=== PATIENT | female | born 1955 ===

== ENCOUNTER 2017-06-16 07:58 | Day surgery (SDC) | payer OTHER ==
[~2017-06-16 07:58] MED LIST: Acetaminophen TAB* 325 MG PO PRN; Buffered Lidocaine 0.9% SYRIN* 5 ML/SYR SYRINGE INTRADERM ONE
[2017-06-16] MEDS ORDERED: fentaNYL* 50 MCG/ML 2 ML VIAL (100 MCG VIAL) ONE (10:04)
[2017-06-16] MEDS ORDERED: Midazolam* 1 MG/ML 2 ML VIAL (2 MG) ONE (10:04)
[2017-06-16] MEDS ORDERED: Cyclopentolate 1% OPTH.SOL* 2 ML BTL ONE (11:04)
[2017-06-16] MEDS ORDERED: Ketorolac 0.5% OPHTH (NF) 0.5 % 5 ML BTL ONE (11:04)
[2017-06-16] MEDS ORDERED: Povidone Iodine 5% OPTH* 30 ML BTL ONE (11:04)
[2017-06-16] MEDS ORDERED: acetaZOLAMIDE TAB* 250 MG ONE (11:04)
[2017-06-16] MEDS ORDERED: Lidocaine 1% MPF* 2 ML VIAL ONE (11:04)
[2017-06-16] MEDS ORDERED: Neomycin/Polymy/Dex OPTH.SUSP* MAXITROL 0.1% 5 ML ONE (11:04)
[2017-06-16] MEDS ORDERED: Phenylephrine 2.5% OPTH.SOL* 2 ML BTL ONE (11:04)
[2017-06-16] MEDS ORDERED: Proparacaine 0.5% OPHTH.SOL* 15 ML BTL ONE (11:04)
[2017-06-16] MEDS ORDERED: Lidocaine 2% EPI 1:200000 MPF* 20 ML VIAL ONE (11:04)
[2017-06-16 11:12] VITALS: BP 162/84
--- NOTE | 2017-06-16 12:00 | OP ---
DATE OF OPERATION: 06/16/2017 - [facility] DATE OF : 1955. SURGEON: Jese Juan M.D. PREOPERATIVE DIAGNOSIS: Cataract right eye. POSTOPERATIVE DIAGNOSIS: Cataract right eye. OPERATIVE PROCEDURE: Extracapsular cataract extraction with intraocular lens implant and CTR right eye. DESCRIPTION OF PROCEDURE: The patient was brought to the operating room after being given 1/2% Alcaine with epinephrine drops in the preoperative area. The eye was prepped and draped in the usual sterile fashion. Sterile drape and eyelid speculum were placed. Again, topical 1/2% Alcaine with epinephrine was given. A paracentesis incision was made at the 9 o'clock position with the No.75 blade. Clear cornea incision 2.2 x 2.2-mm was created at the 12 o'clock position starting at the anterior limbus using the 2.2-mm keratome. The anterior chamber was irrigated with 0.4 mL of 1% non-preservative intracameral lidocaine and filled with DisCoVisc. A capsulorrhexis was completed using the cystotome and the Utrata forceps. Hydrodissection was performed with balanced salt solution. The lens nucleus was removed with the Phacoemulsification handpiece without incident. Cortex was removed with the irrigation-aspiration handpiece. The capsular bag was re-inflated using DisCoVisc and an [id number] implant was inserted with the shooter, followed by a capsular tension ring [id number] inserted with its shooter into the capsular bag. The irrigation- aspiration handpiece was used to remove all residual DisCoVisc. The eye was refilled with balanced salt solution and the wound checked and found to be watertight. Topical Maxitrol drops were given. Indication for complex cataract surgery: Status post vitrectomy requiring a capsular tension ring device. [id number]/[facility] #: [id number] DANII
== END 2017-06-16 10:53 | disposition home or self-care (01) ==
LOC: OREAST 07:58
PROVIDERS: ATTEND Specialist
DX: H25.811 Combined forms of age-related cataract, right eye (principal); E11.3513 Type 2 diabetes mellitus with proliferative diabetic retinopathy with macular edema, bilateral; H43.12 Vitreous hemorrhage, left eye; Z79.84 Long term (current) use of oral hypoglycemic drugs; Z79.4 Long term (current) use of insulin; Z87.891 Personal history of nicotine dependence; I10 Essential (primary) hypertension; M81.0 Age-related osteoporosis without current pathological fracture; E66.01 Morbid (severe) obesity due to excess calories; R01.1 Cardiac murmur, unspecified; G47.33 Obstructive sleep apnea (adult) (pediatric); E78.2 Mixed hyperlipidemia
CPT/HCPCS: A9270-GY; J2250; J3010; V2632

== ENCOUNTER 2017-06-23 06:43 | Day surgery (SDC) | payer OTHER ==
[2017-06-23] MEDS ORDERED: Trypan Blue 0.06% SOL* 0.5 ML BTL ONE (07:01)
[2017-06-23] MEDS ORDERED: Lidocaine 1% MPF* 2 ML VIAL ONE (07:13)
[2017-06-23] MEDS ORDERED: Ketorolac 0.5% OPHTH (NF) 0.5 % 5 ML BTL ONE (07:13)
[2017-06-23] MEDS ORDERED: Neomycin/Polymy/Dex OPTH.SUSP* MAXITROL 0.1% 5 ML ONE (07:13)
[2017-06-23] MEDS ORDERED: Povidone Iodine 5% OPTH* 30 ML BTL ONE (07:13)
[2017-06-23] MEDS ORDERED: Phenylephrine 2.5% OPTH.SOL* 2 ML BTL ONE (07:13)
[2017-06-23] MEDS ORDERED: acetaZOLAMIDE TAB* 250 MG ONE (07:13)
[2017-06-23] MEDS ORDERED: Cyclopentolate 1% OPTH.SOL* 2 ML BTL ONE (07:13)
[2017-06-23] MEDS ORDERED: Lidocaine 2% EPI 1:200000 MPF* 20 ML VIAL ONE (07:13)
[2017-06-23] MEDS ORDERED: Midazolam* 1 MG/ML 2 ML VIAL (2 MG) ONE (07:14)
[2017-06-23] MEDS ORDERED: Proparacaine 0.5% OPHTH.SOL* 15 ML BTL ONE (07:14)
[2017-06-23 08:11] VITALS: BP 180/84
--- NOTE | 2017-06-23 12:19 | OP ---
DATE OF OPERATION: 06/23/2017 - [facility] DATE OF : 1955. SURGEON: Jese Juan M.D. PREOPERATIVE DIAGNOSIS: Cataract left eye. POSTOPERATIVE DIAGNOSIS: Cataract left eye. OPERATIVE PROCEDURE: Extracapsular cataract extraction with intraocular lens implant left eye. DESCRIPTION OF PROCEDURE: The patient was brought to the operating room after being given 1/2% Alcaine with epinephrine drops in the preoperative area. The eye was prepped and draped in the usual sterile fashion. Sterile drape and eyelid speculum were placed. Again, topical 1/2% Alcaine with epinephrine was given. A paracentesis incision was made at the 3 o'clock position with the No.75 blade. Clear cornea incision 2.2 x 2.2-mm was created at the 6 o'clock position starting at the anterior limbus using the 2.2-mm keratome. The anterior chamber was irrigated with 0.4 mL of 1% non-preservative intracameral lidocaine and filled with DisCoVisc. A capsulorrhexis was completed using the cystotome and the Utrata forceps. Hydrodissection was performed with balanced salt solution. The lens nucleus was removed with the Phacoemulsification handpiece without incident. Cortex was removed with the irrigation-aspiration handpiece. The capsular bag was re-inflated using DisCoVisc and an [id number] implant was inserted with the shooter. VisionBlue was used prior to capsulorrhexis staining the anterior capsule. The irrigation-aspiration handpiece was used to remove all residual DisCoVisc. The eye was refilled with balanced salt solution and the wound checked and found to be watertight. Topical Maxitrol drops were given. Indication for complex cataract surgery: White cataract requiring capsular dye. [id number]/[facility] #: [id number] MTDD
== END 2017-06-23 08:14 | disposition home or self-care (01) ==
LOC: OREAST 06:43
PROVIDERS: ATTEND Specialist
DX: H25.812 Combined forms of age-related cataract, left eye (principal); E11.3513 Type 2 diabetes mellitus with proliferative diabetic retinopathy with macular edema, bilateral; H43.12 Vitreous hemorrhage, left eye; Z79.4 Long term (current) use of insulin; Z79.84 Long term (current) use of oral hypoglycemic drugs; Z87.891 Personal history of nicotine dependence; I10 Essential (primary) hypertension; E03.9 Hypothyroidism, unspecified; E78.00 Pure hypercholesterolemia, unspecified; F31.9 Bipolar disorder, unspecified
CPT/HCPCS: A9270-GY; J2250; V2632